=== PATIENT | male | born 1940 | race African-American/Black ===

== ENCOUNTER → 2018-01-02 | Outpatient (CLI) | payer MEDICARE, OTHER | END | disposition home or self-care (01) | LOC: RADMN 09:40 | PROVIDERS: ATTEND Physical Medicine & Rehabilitation Spinal Cord Injury Medicine | DX: I67.82 Cerebral ischemia (principal); R90.82 White matter disease, unspecified; M75.91 Shoulder lesion, unspecified, right shoulder; M19.012 Primary osteoarthritis, left shoulder; M25.572 Pain in left ankle and joints of left foot | CPT/HCPCS: 70551; 73221; 73721 ==